=== PATIENT | male | born 1980 | race Caucasian/White ===

== ENCOUNTER 2018-10-05 17:00 | Emergency (ER) | payer OTHER ==
[~2018-10-05] VITALS: Ht 185.4 cm; Wt 95.3 kg
--- OUTSIDE RECORDS SUMMARY | 2018-10-05 17:02 | XMS REPORT | Clinical Summary ---
Author Author [facility] Address Unknown Phone Unavailable Care Team Providers Care Nitrogen Operator Name Role Phone PCP Unavailable Allergies Comments Active Allergy Reactions Severity Noted Date Other reaction(s): Hallucinations Cyclobenzaprine Nausea Only 03/10/2016 Other reaction(s): Hallucinations Ketorolac 03/10/2016 Morphine Hives, High 03/10/2016 Itching Medications End Date Status Medication Sig Dispensed Refills Start Date Active promethazine (PHENERGAN) Take 25 mg by 0 25 MG tablet mouth every 6 (six) hours as needed for Nausea. Active ALPRAZolam (XANAX) 0.25 Take 0.25 mg 0 MG tablet by mouth every night as needed for Anxiety. Active ondansetron (ZOFRAN) 4 MG Take 4 mg by 0 tablet mouth 2 (two) times daily as needed for Nausea. Active ondansetron (ZOFRAN ODT) Take 1 tablet 14 tablet 0 4 MG disintegrating (4 mg total) 6 tablet by mouth every 8 (eight) hours as needed for Nausea for up to 14 doses. Active amLODIPine (NORVASC) 10 Take 10 mg by 0 MG tablet mouth daily. Active clonazePAM (KLONOPIN) 1 Take 1 mg by 0 MG tablet mouth 2 (two) times daily as needed for Anxiety. Active Problems Not on file Encounters Care Team Description Date Type Specialty Milady, Will, DO Acute pain of left knee (Primary Dx); Drug-seeking behavior 06/07/2018 Emergency Emergency Medicine after 10/04/2017 Social History Date Tobacco Use Types Packs/Day Years Used Never Smoker Smokeless Tobacco: Never Used Alcohol Use Drinks/Week oz/Week Comments Yes Sex Assigned at Date Recorded Not on file Industry Job Start Date Occupation Not on file Not on file Not on file Travel End Travel History Travel Start No recent travel history available. Last Filed Vital Signs Time Taken Vital Sign Reading 06/07/2018 8:32 PM CDT Blood Pressure 132/71 06/07/2018 8:32 PM CDT Pulse 68 06/07/2018 8:32 PM CDT Temperature 37.3 C (99.1 F) 06/07/2018 8:32 PM CDT Respiratory Rate 18 06/07/2018 8:32 PM CDT Oxygen Saturation 99% - Inhaled Oxygen - Concentration 06/07/2018 8:32 PM CDT Weight 78 kg (172 lb) 06/07/2018 8:32 PM CDT Height 185.4 cm (6' 1") 06/07/2018 8:32 PM CDT Body Mass Index 22.69 Plan of Treatment Not on file Results Not on fileafter 10/04/2017 Insurance Payer Benefit Subscriber ID Type Phone Address Plan / Group CIGNA - MGD CARE CIGNA xxxxxxxxxxx HMO/POS HMO/POS/OP EN ACCESS
--- OUTSIDE RECORDS SUMMARY | 2018-10-05 17:02 | XMS REPORT | Clinical Summary ---
Author Author [facility] Address Unknown Phone Unavailable Care Team Providers Care Patcher Wood Welder Name Role Phone Josemanuel Cortes MD PCP Allergies No Known Allergies Medications Not on file Active Problems Not on file Encounters Care Team Description Date Type Specialty Epi Hayward DO Abdominal pain, unspecified abdominal location (Primary Dx); Other chronic pain 11/16/2017 Emergency Emergency Medicine after 10/04/2017 Social History Date Tobacco Use Types Packs/Day Years Used Never Smoker Smokeless Tobacco: Never Used Sex Assigned at Date Recorded Not on file Industry Job Start Date Occupation Not on file Not on file Not on file Travel End Travel History Travel Start No recent travel history available. Last Filed Vital Signs Time Taken Vital Sign Reading 11/16/2017 6:00 PM RIG WELDER Blood Pressure 103/63 11/16/2017 6:00 PM RIG WELDER Pulse 60 11/16/2017 4:50 PM RIG WELDER Temperature 37.1 C (98.8 F) 11/16/2017 6:00 PM RIG WELDER Respiratory Rate 20 11/16/2017 6:00 PM RIG WELDER Oxygen Saturation 98% - Inhaled Oxygen - Concentration - Weight - 11/16/2017 4:52 PM RIG WELDER Height 185.4 cm (6' 1") - Body Mass Index - Plan of Treatment Not on file Procedures Comments Procedure Name Priority Date/Time Associated Diagnosis ZZESTIMATED GFR STAT 11/16/2017 5:21 PM RIG WELDER HC COMPLETE BLD COUNT STAT 11/16/2017 W/AUTO DIFF 5:21 PM RIG WELDER LIPASE LEVEL STAT 11/16/2017 5:21 PM RIG WELDER COMPREHENSIVE METABOLIC STAT 11/16/2017 PANEL 5:21 PM RIG WELDER after 10/04/2017 Results * Estimated GFR (11/16/2017 5:21 PM RIG WELDER) GFR Non Af Amer 62 mL/min/1.73 m2 [facility] DEPARTMENT OF PATHOLOGY AND GENOMIC MEDICINE GFR Af Amer 75 mL/min/1.73 m2 [facility] DEPARTMENT OF Comment: PATHOLOGY AND Chronic kidney disease: <60 GENOMIC MEDICINE mL/min/1.73m2 Kidney failure: <15 mL/min/1.73m2 The estimated GFR is calculated from the IDMS-traceable Modification of Diet in Renal Disease Equation. The accuracy of the calculation is poor when the creatinine is normal. Calculated values >90 mL/min/1.73m2 are not reported. This equation has not been validated in children (<18 years), women, the elderly (>70 years), or ethnic groups other than Caucasians and Americans. Specimen Plasma specimen Performing Organization Address City/State/Zipcode Phone Number [facility] DEPARTMENT OF [address] [place] [address] PATHOLOGY AND GENOMIC MEDICINE * CBC with platelet and differential (11/16/2017 5:21 PM RIG WELDER) WBC 5.61 4.50 - 11.00 k/uL [facility] DEPARTMENT OF PATHOLOGY AND GENOMIC MEDICINE RBC 5.09 4.40 - 6.00 m/uL [facility] DEPARTMENT OF PATHOLOGY AND GENOMIC MEDICINE HGB 15.6 14.0 - 18.0 g/dL [facility] DEPARTMENT OF PATHOLOGY AND GENOMIC MEDICINE HCT 45.5 41.0 - 51.0 % [facility] DEPARTMENT OF PATHOLOGY AND GENOMIC MEDICINE MCV 89.4 82.0 - 100.0 fL [facility] DEPARTMENT OF PATHOLOGY AND GENOMIC MEDICINE MCH 30.6 27.0 - 34.0 pg [facility] DEPARTMENT OF PATHOLOGY AND GENOMIC MEDICINE MCHC 34.3 31.0 - 37.0 g/dL [facility] DEPARTMENT OF PATHOLOGY AND GENOMIC MEDICINE RDW - SD 41.8 37.0 - 55.0 fL [facility] DEPARTMENT OF PATHOLOGY AND GENOMIC MEDICINE MPV 10.9 8.8 - 13.2 fL [facility] DEPARTMENT OF PATHOLOGY AND GENOMIC MEDICINE Platelet count 303 150 - 400 k/uL [facility] DEPARTMENT OF PATHOLOGY AND GENOMIC MEDICINE Nucleated RBC 0.00 /100 WBC [facility] DEPARTMENT OF PATHOLOGY AND GENOMIC MEDICINE Neutrophils 67.5 39.0 - 69.0 % [facility] DEPARTMENT OF PATHOLOGY AND GENOMIC MEDICINE Lymphocytes 23.5 (L) 25.0 - 45.0 % [facility] DEPARTMENT OF PATHOLOGY AND GENOMIC MEDICINE Monocytes 5.2 0.0 - 10.0 % [facility] DEPARTMENT OF PATHOLOGY AND GENOMIC MEDICINE Eosinophils 1.6 0.0 - 5.0 % [facility] DEPARTMENT OF PATHOLOGY AND GENOMIC MEDICINE Basophils 2.0 (H) 0.0 - 1.0 % [facility] DEPARTMENT OF PATHOLOGY AND GENOMIC MEDICINE Immature granulocytes 0.2Comment: "Immature 0.0 - 1.0 % [facility] DEPARTMENT OF granulocytes" (promyelocytes, PATHOLOGY AND myelocytes, metamyelocytes) GENOMIC MEDICINE Specimen Blood Performing Organization Address City/[facility] [place] [address] PATHOLOGY AND GENOMIC MEDICINE * Lipase level (11/16/2017 5:21 PM RIG WELDER) Lipase 70 (H) 13 - 60 U/L [facility] DEPARTMENT OF PATHOLOGY AND GENOMIC MEDICINE Specimen Plasma specimen Performing Organization Address City/[facility] [place] [address] PATHOLOGY AND GENOMIC MEDICINE * Comprehensive metabolic panel (11/16/2017 5:21 PM RIG WELDER) Sodium 144 135 - 148 mEq/L [facility] DEPARTMENT OF PATHOLOGY AND GENOMIC MEDICINE Potassium 4.2 3.5 - 5.0 mEq/L [facility] DEPARTMENT OF PATHOLOGY AND GENOMIC MEDICINE Chloride 103 98 - 112 mEq/L [facility] DEPARTMENT OF PATHOLOGY AND GENOMIC MEDICINE CO2 28 24 - 31 mEq/L [facility] DEPARTMENT OF PATHOLOGY AND GENOMIC MEDICINE Anion gap 13 7 - 15 mEq/L [facility] DEPARTMENT OF Comment: PATHOLOGY AND Starting from January [facility] , anion gap calculation no longer incorporates potassium. Please note the change. BUN 12 6 - 20 mg/dL [facility] DEPARTMENT OF PATHOLOGY AND GENOMIC MEDICINE Creatinine 1.3 (H) 0.7 - 1.2 mg/dL [facility] DEPARTMENT OF PATHOLOGY AND GENOMIC MEDICINE Glucose 104 (H) 65 - 99 mg/dL [facility] DEPARTMENT OF PATHOLOGY AND GENOMIC MEDICINE Calcium 9.9 8.3 - 10.2 mg/dL [facility] DEPARTMENT OF PATHOLOGY AND GENOMIC MEDICINE Protein 8.3 6.3 - 8.3 g/dL [facility] DEPARTMENT OF Comment: PATHOLOGY AND GENOMIC MEDICINE 4.6-7.0 g/dL 1 week 4.4-7.6 g/dL 7 months-1year 5.1-7.3 g/dL 1-2 years5.6-7 .5 g/dL >3 years6.0-8 .0 g/dL 18-150 6.3-8.3 g/dL Albumin 4.3 3.5 - 5.0 g/dL [facility] DEPARTMENT OF PATHOLOGY AND GENOMIC MEDICINE A/G ratio 1.1 0.7 - 3.8 [facility] DEPARTMENT OF PATHOLOGY AND GENOMIC MEDICINE Alkaline phosphatase 60 40 - 129 U/L [facility] DEPARTMENT OF PATHOLOGY AND GENOMIC MEDICINE AST 19 10 - 50 U/L [facility] DEPARTMENT OF PATHOLOGY AND GENOMIC MEDICINE ALT 35 5 - 50 U/L [facility] DEPARTMENT OF PATHOLOGY AND GENOMIC MEDICINE Total bilirubin 0.3 0.0 - 1.2 mg/dL [facility] DEPARTMENT OF PATHOLOGY AND GENOMIC MEDICINE Specimen Plasma specimen Performing Organization Address City/State/Zipcode Phone Number [facility] DEPARTMENT [place] [address] [place] [address] PATHOLOGY AND GENOMIC MEDICINE after 10/04/2017 Insurance Payer Benefit Subscriber ID Type Phone Address Plan / Group CIGNA CIGNA OPEN xxxxxxxxxxx O ACCESS/NET WORK Advance Directives Patient has advance care planning documents on file. For more information, [place] contact: Asaf Walters [address] [place] [address]
--- OUTSIDE RECORDS SUMMARY | 2018-10-05 17:03 | XMS REPORT | Continuity of Care Document ---
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 - 10.4 07/02/2012 Normal [facility] IMMUNOLOGY H pylori IgG null 07/02/2012 NA 9Interpretive Data: Reference Ranges: Negative: <0.9 U/mL Indeterminate: 0.9 - 1.0 U/mL Repeat testing in 10-14 days may be helpful Positive: >=1.1 U/mL A positive result indicates exposure of the patient to H. Pylori, but does not indicate that the current symptoms are due to H. Pylori infection or colonization. Neither does it differentiate between active and past infection. [facility] IMMUNOLOGY KIMMIE Negative (07/02/2012 05:30:00) Negative 07/02/2012 Normal [facility] Hep A IgM Negative *NA* (07/02/2012 05:30:00) Negative 07/02/2012 NA [facility] Hep Bs Ag Negative *NA* (07/02/2012 05:30:00) Negative 07/02/2012 NA [facility] Hep B Core IgM Negative *NA* (07/02/2012 05:30:00) Negative 07/02/2012 NA [facility] Hep C Ab Negative *NA* (07/02/2012 05:30:00) Negative 07/02/2012 NA [facility] IMMUNOLOGY CRP, High Sensitivity 2.4 mg/L 07/02/2012 NA 7Interpretive Data: Low Risk: <1.0 mg/L Average Risk: 1.0 - 3.0 mg/L High Risk: >10.0 mg/L [facility] MICRO MISC - SEROLOGY H pylori IgM NEGATIVE NEGATIVE 07/02/2012 NA 1Result Comment: This test was developed and its performance characteristics have been determined by [facility]. Performance characteristics refer to the analytical performance of the test. Test Performed at: [facility] [address] [id number] Yadi Pruett MD, PhD [facility] CHEMISTRY Bili Indirect 0.2 mg/dL 0.0 - 1.0 07/01/2012 Normal [facility] CHEMISTRY Bili Total 0.3 mg/dL 0.2 - 1.3 07/01/2012 Normal [facility] CHEMISTRY Bili Direct 0.1 mg/dL 0.0 - 0.3 07/01/2012 Normal [facility] CHEMISTRY A/G Ratio 1.2 0.7 - 1.6 07/01/2012 Normal [facility] CHEMISTRY AST 27 unit/L 0 - 37 07/01/2012 Normal [facility] CHEMISTRY Alk Phos 50 unit/L 39 - 136 07/01/2012 Normal [facility] CHEMISTRY Albumin Lvl 3.2 g/dL 3.5 - 5.0 07/01/2012 LOW [facility] CHEMISTRY Globulin 2.7 g/dL 2.0 - 4.0 07/01/2012 Normal [facility] CHEMISTRY Total Protein 5.9 g/dL 6.4 - 8.4 07/01/2012 LOW [facility] CHEMISTRY ALT 40 unit/L 0 - 65 07/01/2012 Normal [facility] CHEMISTRY Glucose Lvl 122 mg/dL 70 - 99 07/01/2012 HI 3Interpretive Data: Adult reference range values reflect the clinical guidelines of the [place] [employer]. [facility] CHEMISTRY Alk Phos 50 unit/L 39 - 136 07/01/2012 Normal [facility] CHEMISTRY BUN 7 mg/dL 7 - 22 07/01/2012 Normal [facility] CHEMISTRY Potassium Lvl 4.0 meq/L 3.5 - 5.1 07/01/2012 Normal [facility] CHEMISTRY Sodium Lvl 144 meq/L 135 - 145 07/01/2012 Normal [facility] CHEMISTRY Creatinine Lvl 0.8 mg/dL 0.5 - 1.4 07/01/2012 Normal [facility] CHEMISTRY AST 27 unit/L 0 - 37 07/01/2012 Normal [facility] CHEMISTRY Total Protein 5.9 g/dL 6.4 - 8.4 07/01/2012 LOW [facility] CHEMISTRY Bili Total 0.3 mg/dL 0.2 - 1.3 07/01/2012 Normal [facility] CHEMISTRY Calcium Lvl 7.9 mg/dL 8.5 - 10.5 07/01/2012 LOW [facility] CHEMISTRY Chloride Lvl 110 meq/L 95 - 109 07/01/2012 HI [facility] CHEMISTRY CO2 25 meq/L 24 - 32 07/01/2012 Normal [facility] CHEMISTRY Albumin Lvl 3.2 g/dL 3.5 - 5.0 07/01/2012 LOW [facility] CHEMISTRY ALT 40 unit/L 0 - 65 07/01/2012 Normal [facility] CHEMISTRY A/G Ratio 1.2 0.7 - 1.6 07/01/2012 Normal [facility] CHEMISTRY Globulin 2.7 g/dL 2.0 - 4.0 07/01/2012 Normal [facility] CHEMISTRY B/C Ratio 9 6 - 25 07/01/2012 Normal [facility] CHEMISTRY AGAP 13.0 meq/L 10.0 - 20.0 07/01/2012 Normal [facility] CHEMISTRY Magnesium Lvl 1.9 mg/dL 1.8 - 2.4 07/01/2012 Normal [facility] CHEMISTRY Lipase Lvl 147 unit/L 73 - 393 07/01/2012 Normal [facility] HEMATOLOGY Platelet 217 K/CMM 133 - 450 07/01/2012 Normal [facility] HEMATOLOGY MCH 31.2 pg 27.0 - 31.0 07/01/2012 [facility] HEMATOLOGY RDW 16.3 % 11.5 - 14.5 07/01/2012 [facility] HEMATOLOGY MCHC 34.1 g/dL 32.0 - 36.0 07/01/2012 Normal [facility] HEMATOLOGY MPV 9.7 fL 7.4 - 10.4 07/01/2012 [facility] HEMATOLOGY Hct 36.3 % 42.0 - 54.0 07/01/2012 LOW [facility] HEMATOLOGY Hgb 12.4 g/dL 14.0 - 18.0 07/01/2012 [facility] HEMATOLOGY MCV 91.7 fL 80.0 - 94.0 07/01/2012 Normal [facility] HEMATOLOGY RBC 3.96 M/CMM 4.70 - 6.10 07/01/2012 [facility] HEMATOLOGY WBC 7.0 K/CMM 3.7 - 10.4 07/01/2012 [facility] HEMATOLOGY Eosinophils 8.1 % 0.0 - 4.0 07/01/2012 [facility] HEMATOLOGY Monocytes 5.4 % 2.0 - 12.0 07/01/2012 [facility] HEMATOLOGY Segs 48.9 % 45.0 - 75.0 07/01/2012 [facility] HEMATOLOGY Lymphocytes 36.5 % 20.0 - 40.0 07/01/2012 [facility] HEMATOLOGY Eosinophils # 0.6 K/CMM 0.0 - 0.5 07/01/2012 [facility] HEMATOLOGY Basophils # 0.1 K/CMM 0.0 - 0.2 07/01/2012 [facility] HEMATOLOGY Monocytes # 0.4 K/CMM 0.0 - 0.8 07/01/2012 [facility] HEMATOLOGY Lymphocytes # 2.6 K/CMM 1.0 - 5.5 07/01/2012 [facility] HEMATOLOGY Segs-Bands # 3.4 K/CMM 1.5 - 8.1 07/01/2012 [facility] HEMATOLOGY Basophils 1.1 % 0.0 - 1.0 07/01/2012 [facility] IMMUNOLOGY CRP, High Sensitivity 0.9 mg/L 07/01/2012 NA 8Interpretive Data: Low Risk: <1.0 mg/L Average Risk: 1.0 - 3.0 mg/L High Risk: >10.0 mg/L [facility] CHEMISTRY TSH 1.930 uIU/mL 0.360 - 3.740 06/30/2012 Normal [facility] CHEMISTRY AGAP 13.8 meq/L 10.0 - 20.0 06/30/2012 Normal [facility] CHEMISTRY Calcium Lvl 8.2 mg/dL 8.5 - 10.5 06/30/2012 LOW [facility] CHEMISTRY CO2 26 meq/L 24 - 32 06/30/2012 Normal [facility] CHEMISTRY Glucose Lvl 118 mg/dL 70 - 99 06/30/2012 HI 4Interpretive Data: Adult reference range values reflect the clinical guidelines of the [place] [employer]. [facility] CHEMISTRY BUN 17 mg/dL 7 - 22 06/30/2012 Normal [facility] CHEMISTRY Creatinine Lvl 1.0 mg/dL 0.5 - 1.4 06/30/2012 Normal [facility] CHEMISTRY Chloride Lvl 106 meq/L 95 - 109 06/30/2012 Normal [facility] CHEMISTRY Sodium Lvl 142 meq/L 135 - 145 06/30/2012 Normal [facility] CHEMISTRY Potassium Lvl 3.8 meq/L 3.5 - 5.1 06/30/2012 Normal [facility] HEMATOLOGY Basophils # 0.1 K/CMM 0.0 - 0.2 06/30/2012 Normal [facility] HEMATOLOGY Segs 57.3 % 45.0 - 75.0 06/30/2012 Normal [facility] HEMATOLOGY Lymphocytes 30.1 % 20.0 - 40.0 06/30/2012 Normal [facility] HEMATOLOGY Monocytes 5.8 % 2.0 - 12.0 06/30/2012 Normal [facility] HEMATOLOGY Eosinophils 5.8 % 0.0 - 4.0 06/30/2012 HI [facility] HEMATOLOGY Lymphocytes # 2.4 K/CMM 1.0 - 5.5 06/30/2012 Normal [facility] HEMATOLOGY Basophils 1.0 % 0.0 - 1.0 06/30/2012 Normal [facility] HEMATOLOGY Monocytes # 0.5 K/CMM 0.0 - 0.8 06/30/2012 Normal [facility] HEMATOLOGY Eosinophils # 0.5 K/CMM 0.0 - 0.5 06/30/2012 Normal [facility] HEMATOLOGY Segs-Bands # 4.7 K/CMM 1.5 - 8.1 06/30/2012 Normal [facility] HEMATOLOGY PT 13.6 s 12.0 - 14.7 06/30/2012 Normal [facility] HEMATOLOGY PTT 30.5 s 22.9 - 35.8 06/30/2012 Normal 6Interpretive Data: Heparin Therapeutic Range: 57 - 92 Seconds [facility] HEMATOLOGY INR 1.02 0.85 - 1.17 06/30/2012 Normal 5Interpretive Data: RECOMMENDED RANGES FOR PROTIME INR: 2.0-3.0 for most medical and surgical thromboembolic states. 2.5-3.5 for artificial heart valves and recurrent embolism. INR SHOULD BE USED ONLY FOR PATIENTS ON STABLE ANTICOAGULANT THERAPY. [facility] HEMATOLOGY MCHC 33.9 g/dL 32.0 - 36.0 06/30/2012 Normal [facility] HEMATOLOGY RDW 16.3 % 11.5 - 14.5 06/30/2012 [facility] HEMATOLOGY Platelet 259 K/CMM 133 - 450 06/30/2012 Normal [facility] HEMATOLOGY MPV 9.4 fL 7.4 - 10.4 06/30/2012 Normal [facility] HEMATOLOGY RBC 4.28 M/CMM 4.70 - 6.10 06/30/2012 LOW [facility] HEMATOLOGY Hgb 13.4 g/dL 14.0 - 18.0 06/30/2012 LOW [facility] HEMATOLOGY Hct 39.4 % 42.0 - 54.0 06/30/2012 LOW [facility] HEMATOLOGY WBC 8.1 K/CMM 3.7 - 10.4 06/30/2012 Normal [facility] HEMATOLOGY MCV 92.0 fL 80.0 - 94.0 06/30/2012 Normal [facility] HEMATOLOGY MCH 31.2 pg 27.0 - 31.0 06/30/2012 [facility] CHEMISTRY Bili Indirect 0.6 mg/dL 0.0 - 1.0 06/29/2012 Normal [facility] CHEMISTRY Globulin 3.6 g/dL 2.0 - 4.0 06/29/2012 Normal [facility] CHEMISTRY A/G Ratio 1.1 0.7 - 1.6 06/29/2012 Normal [facility] CHEMISTRY Bili Direct 0.1 mg/dL 0.0 - 0.3 06/29/2012 Normal [facility] CHEMISTRY Bili Total 0.7 mg/dL 0.2 - 1.3 06/29/2012 Normal [facility] CHEMISTRY Alk Phos 59 unit/L 39 - 136 06/29/2012 Normal [facility] CHEMISTRY ALT 47 unit/L 0 - 65 06/29/2012 Normal [facility] CHEMISTRY AST 10 unit/L 0 - 37 06/29/2012 Normal [facility] CHEMISTRY Albumin Lvl 4.1 g/dL 3.5 - 5.0 06/29/2012 Normal [facility] CHEMISTRY Total Protein 7.7 g/dL 6.4 - 8.4 06/29/2012 Normal [facility] CHEMISTRY Amylase Lvl 56 unit/L 25 - 115 06/29/2012 Normal [facility] CHEMISTRY Lipase Lvl 128 unit/L 73 - 393 06/29/2012 Normal [facility] STOOL TESTS Occult Bld Stl Positive *ABN* (06/29/2012 14:50:00) Negative 06/29/2012 ABN [facility] URINALYSIS UA Bili Negative *NA* (06/29/2012 14:20:00) Negative 06/29/2012 NA [facility] URINALYSIS UA Ketones Negative *NA* (06/29/2012 14:20:00) Negative 06/29/2012 NA [facility] URINALYSIS UA pH 6.5 5.0 - 8.0 06/29/2012 Normal [facility] URINALYSIS UA Urobilinogen 0.2 EU/dL 0.1 - 1.0 06/29/2012 Normal [facility] URINALYSIS UA Blood Negative (06/29/2012 14:20:00) Negative 06/29/2012 Normal [facility] URINALYSIS UA Mucus Rare /LPF (06/29/2012 14:20:00) None Seen 06/29/2012 Normal [facility] URINALYSIS UA RBC 0-2 /HPF (06/29/2012 14:20:00) 0 - 2 06/29/2012 Normal [facility] URINALYSIS UA Bacteria Occasional /HPF (06/29/2012 14:20:00) None Seen 06/29/2012 Normal [facility] URINALYSIS UA WBC 0-2 /HPF (06/29/2012 14:20:00) None Seen 06/29/2012 Normal [facility] URINALYSIS UA Leuk Est Negative (06/29/2012 14:20:00) Negative 06/29/2012 Normal [facility] URINALYSIS UA Sq Epi Occasional /LPF (06/29/2012 14:20:00) Few 06/29/2012 Normal [facility] URINALYSIS Micro? Performed (06/29/2012 14:20:00) 06/29/2012 Normal [facility] URINALYSIS UA Nitrite Negative (06/29/2012 14:20:00) Negative 06/29/2012 Normal [facility] URINALYSIS UA Color Yellow *NA* (06/29/2012 14:20:00) Yellow 06/29/2012 NA [facility] URINALYSIS UA Protein Negative (06/29/2012 14:20:00) Negative 06/29/2012 Normal [facility] URINALYSIS UA Glucose Negative (06/29/2012 14:20:00) Negative 06/29/2012 Normal [facility] URINALYSIS UA Spec Grav <=1.005
*NA*
(06/29/2012 14:20:00) <sup> </sup> <=1.030 06/29/2012 NA [facility] URINALYSIS UA Turbidity Clear (06/29/2012 14:20:00) Clear 06/29/2012 Normal [facility] Vital Signs Vital Sign Value Date Comments Source Temperature Oral (F) 98.0 F 10/14/2015 [facility] Respitory Rate 18 10/14/2015 [facility] Heart Rate 71 10/14/2015 [facility] Systolic (mm Hg) 108 10/14/2015 [facility] Diastolic (mm Hg) 72 10/14/2015 [facility] Temperature Oral (F) 98.5 F 10/13/2015 [facility] Heart Rate 64 10/13/2015 [facility] Respitory Rate 18 10/13/2015 [facility] Systolic (mm Hg) 112 10/13/2015 [facility] Diastolic (mm Hg) 71 10/13/2015 [facility] Systolic (mm Hg) 116 04/12/2014 [facility] Diastolic (mm Hg) 72 04/12/2014 [facility] Heart Rate 70 04/12/2014 [facility] Respitory Rate 16 04/12/2014 [facility] Temperature Oral (F) 98.5 F 04/12/2014 [facility] Systolic (mm Hg) 120 04/12/2014 [facility] Diastolic (mm Hg) 78 04/12/2014 [facility] Heart Rate 77 04/12/2014 [facility] Respitory Rate 16 04/12/2014 [facility] Weight 72.727 04/12/2014 [facility] Heart Rate 79 04/12/2014 [facility] Respitory Rate 16 04/12/2014 [facility] Systolic (mm Hg) 118 04/12/2014 [facility] Diastolic (mm Hg) 71 04/12/2014 [facility] Temperature Oral (F) 97.4 F 04/12/2014 [facility] Weight 86.364 08/09/2012 [facility] Height 185.42 cm 08/09/2012 [facility] Respitory Rate 16 07/03/2012 [facility] Temperature Oral (F) 97.6 F 07/03/2012 [facility] Systolic (mm Hg) 125 07/03/2012 [facility] Diastolic (mm Hg) 63 07/03/2012 [facility] Heart Rate 53 07/03/2012 [facility] Respitory Rate 18 07/03/2012 [facility] Heart Rate 62 07/03/2012 [facility] Temperature Oral (F) 98.0 F 07/03/2012 [facility] Diastolic (mm Hg) 66 07/03/2012 [facility] Systolic (mm Hg) 119 07/03/2012 [facility] Diastolic (mm Hg) 63 07/03/2012 [facility] Heart Rate 57 07/03/2012 [facility] Systolic (mm Hg) 117 07/03/2012 [facility] Respitory Rate 18 07/03/2012 [facility] Temperature Oral (F) 98.3 F 07/03/2012 [facility] Weight 82.200 06/30/2012 [facility] Height 182.88 cm 06/30/2012 [facility] Weight 81.818 06/29/2012 [facility] Height 182.88 cm 06/29/2012 [facility] Encounters Location Location Details Encounter Type Encounter Number Reason For Visit Attending Provider ADM Date DC Date Status Source [facility] Inpatient [id number] HERIBERTO GARCIA 07/01/2012 07/03/2012 Active [facility] [place] [id number] SAMRA BAVISHI 08/09/2012 08/09/2012 Active [facility] Emergency [id number] VIJI CASTELLANOS 06/10/2013 06/10/2013 Active [facility] [id number] Evelio Navarro 04/12/2014 04/12/2014 [facility] [id number] Haresh [place] 10/13/2015 10/14/2015 [facility] Outpatient [id number] D SAMRA BAVISHI Cancel [facility] Procedures Procedure Code Date Perfomer Comments Source Spinal fusion [id number] [facility] Spinal fusion [id number] [facility]
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
--- OUTSIDE RECORDS SUMMARY | 2018-10-05 17:04 | XMS REPORT ---
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 Allergies, Adverse Reactions, Alerts Allergy Name Allergy Type Status Severity Reaction(s) Onset Date Inactive Date Treating Clinician Comments cyclobenzaprine DA Active NV 2018-06-10 00:00:00 ketorolac DA Active NV 2018-06-10 00:00:00 Medications This patient has no known medications. Results Test Description Test Time Test Comments Text Results Atomic Results Result Comments MRI LUMBAR WO CLINICAL INDICATION: M54.5 Low back pain. back pain and right leg pain. no sxMODALITY: 1.5 Victoria Siemens TECHNIQUE: Multiplanar multi sequence MRI examination of the lumbar spine was performed.IMPRESSION:1. Normal vertebral body heights, disc heights and alignment with mild disc desiccation at all levels.2. No central canal or foraminal narrowing.3. At L4- L5, 1 mm broad-based disc protrusion minimally effacing the CSF column. The facets are normal. The central canal and foramina are normal.4. At L3-L4, mild bilateral facet arthropathy.FINDINGS:COMPARISON: noneGeneral observations: Yuri tebral body heights, disc heights and alignment are normal. There is mild disc desiccation in all lumbar discs. FINDINGS AT SPECIFIC LEVELS:L5-S1: There is no disc protrusion or facet arthropathy. The central canal and foramina are normal.L4-L5: There is a 1 mm broad-based disc protrusion minimally effacing the CSF column. The facets are normal. The central canal and foramina are normal.L3- L4: There is no disc protrusion. There is mild bilateral facet arthropathy. The central canal and foramina are patent.L2-L3: There is no disc protrusion or facet arthropathy. The central canal and foramina are patent.L1-L2: There is no disc protrusion or facet arthropathy. The central canal and foramina are patent.
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
--- OUTSIDE RECORDS SUMMARY | 2018-10-05 17:04 | XMS REPORT | CCD ---
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
--- OUTSIDE RECORDS SUMMARY | 2018-10-05 17:04 | XMS REPORT | CCD ---
Author Author Auto Generated Organization [facility] Address Unknown Phone Unavailable Care Team Providers Care Inweaver Name Role Phone Amy Donahue CP Allergies, Adverse Reactions, Alerts Substance Reaction Status Flexeril Active Problem List Condition Effective Dates Status [D]Nausea and vomiting 06/30/2012 Active Abdominal pain Active Abdominal pain Active
--- OUTSIDE RECORDS SUMMARY | 2018-10-05 17:04 | XMS REPORT | CCD ---
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 Name Role Phone Barak Kendrick CP Allergies, Adverse Reactions, Alerts Substance Reaction Status Flexeril Active Problem List Condition Effective Dates Status [D]Nausea and vomiting 06/30/2012 Active Abdominal pain Active Abdominal pain Active Medications Medication Instructions Start Date End Date Status Zofran 4 mg, Route: IVP, Drug form: INJ, 06/29/2012 06/29/2012 Completed ONCE, Dosing Weight 81.818, kg, Start date: 06/29/12 20:37:00, Stop date: 06/29/12 20:37:00 NS 1,000 mL 1,000 mL, Rate: 100 ml/hr, Infuse 06/29/2012 06/30/2012 Discontinued over: 10 hr, Route: IV, Dosing Weight 81.818 kg, Total Volume: 1,000, Start date: 06/29/12 20:27:00, Duration: 30 day, Stop date: 07/29/12 20:26:00 [place] 5/325 oral 2 tab, Route: PO, Drug Form: TAB, 06/29/2012 07/01/2012 Discontinued tablet kg, Q6H, PRN Pain, Start date: 06/29/12 21:23:00, Duration: 30 day, Stop date: 07/29/12 21:22:00 lactulose 20 gm, 30 mL, Route: PO, Drug form: 06/29/2012 07/03/2012 Discontinued SYRP, BID, PRN Constipation, Start date: 06/29/12 23:23:00, Duration: 30 day, Stop date: 07/29/12 23:22:00 acetaminophen-hydroc 1 tab, Route: PO, Drug Form: TAB, 06/29/2012 07/01/2012 Discontinued odone 325 mg-5 mg Q6H, PRN Pain, Start date: 06/29/12 oral tablet 23:22:00, Duration: 30 day, Stop date: 07/29/12 23:21:00 Protonix 40 mg, Route: IVP, Drug form: INJ, 07/01/2012 07/01/2012 Completed ONCE, Start date: 07/01/12 6:42:00, Stop date: 07/01/12 6:42:00 Phenergan 25 mg, 1 tab, Route: PO, Drug form: 06/29/2012 07/01/2012 Discontinued TAB, Q6H, PRN Nausea & Vomiting, Start date: 06/29/12 23:22:00, Duration: 30 day, Stop date: 07/29/12 23:21:00 morphine Sulfate 4 mg, 0.8 mL, Route: IV, Drug form: 06/29/2012 07/01/2012 Discontinued INJ, Q4H, PRN Pain, Start date: 06/29/12 23:21:00, Duration: 30 day, Stop date: 07/29/12 23:20:00 Phenergan 25 mg, Route: IM, ONCE, Dosing 06/29/2012 06/29/2012 Completed Weight 81.818, kg, Priority: STAT, Start date: 06/29/12 16:23:00, Stop date: 06/29/12 16:23:00 Ativan 1 mg, 0.5 mL, Route: IV, Drug form: 06/30/2012 07/03/2012 Discontinued INJ, Q4H, PRN Nausea, Start date: 06/30/12 20:50:00, Duration: 30 day, Stop date: 07/30/12 20:49:00 Reglan 10 mg, 2 mL, Route: IV, Drug form: 06/30/2012 07/01/2012 Completed INJ, ONCE, Start date: 06/30/12 23:14:00, Stop date: 06/30/12 23:14:00 Dilaudid 2 mg, Route: IV, ONCE, Dosing 06/29/2012 06/29/2012 Completed Weight 81.818, kg, Start date: 06/29/12 16:22:00, Stop date: 06/29/12 16:22:00 hydromorphone 6 mg 30 mL, Rate: asdir, Route: IV, 06/30/2012 07/03/2012 Discontinued Dosing Weight 82.2 kg, Total Volume: 30, Start date: 06/30/12 20:49:00, Duration: 30 day, Stop date: 07/30/12 20:48:00 Zofran 4 mg, 2 mL, Route: IVP, Drug form: 06/30/2012 07/03/2012 Discontinued INJ, Q6H, PRN Pain, Start date: 06/30/12 10:18:00, Duration: 30 day, Stop date: 07/30/12 10:17:00 Zofran 4 mg, 2 mL, Route: IVP, Drug form: 06/30/2012 07/01/2012 Discontinued INJ, ABXQ6H, Start date: 06/30/12 21:00:00, Duration: 30 day, Stop date: 07/30/12 15:00:00 Reglan 10 mg, 2 mL, Route: IV, Drug form: 07/01/2012 07/01/2012 Discontinued INJ, ABXQ6H, Start date: 07/01/12 0:00:00, Duration: 30 day, Stop date: 07/30/12 18:00:00 pantoprazole 80 mg + 100 mL, Rate: 10 ml/hr, Infuse 06/30/2012 07/02/2012 Completed Sodium Chloride 0.9% over: 10 hr, Route: IV, Dosing IV 100 mL Weight 82.2 kg, Total Volume: 100, Start date: 06/30/12 20:45:00, Duration: 48 hr, Stop date: 07/02/12 20:44:00 GoLYTELY 4,000 mL, Route: PO, Drug Form: 07/02/2012 07/02/2012 Completed PDR/REC, ONCE, Start date: 07/02/12 9:00:00, Stop date: 07/02/12 9:00:00 pantoprazole 40 mg IVP, 120 ml/hr, Start date: 06/30/2012 06/30/2012 Completed 06/30/12 20:45:00, Duration: 1, 10 ml Carafate 1 gm, 10 mL, Route: PO, Drug form: 06/30/2012 07/03/2012 Discontinued SUSP, QID, Start date: 06/30/12 21:00:00, Duration: 30 day, Stop date: 07/30/12 17:00:00 morphine Sulfate 4 mg, Route: IVP, ONCE, Dosing 06/29/2012 06/29/2012 Completed Weight 81.818, kg, Start date: 06/29/12 20:27:00, Stop date: 06/29/12 20:27:00 Zofran 4 mg, 2 mL, Route: IVP, Drug form: 07/01/2012 07/01/2012 Discontinued INJ, Q12H, Start date: 07/01/12 9:00:00, Duration: 30 day, Stop date: 07/30/12 21:00:00 Reglan 10 mg, 2 mL, Route: IV, Drug form: 07/01/2012 07/01/2012 Discontinued INJ, [id number], Start date: 07/01/12 3:00:00, Duration: 30 day, Stop date: 07/30/12 15:00:00 hydromorphone 2 mg, 1 mL, Route: IVP, Drug form: 06/29/2012 06/29/2012 Completed INJ, ONCE, kg, Priority: STAT, Start date: 06/29/12 14:48:00, Stop date: 06/29/12 14:48:00 ondansetron 8 mg, 4 mL, Route: IVP, Drug form: 06/29/2012 06/29/2012 Completed INJ, ONCE, kg, Priority: STAT, Start date: 06/29/12 14:48:00, Stop date: 06/29/12 14:48:00 pantoprazole 40 mg, Route: IVP, Drug form: INJ, 06/29/2012 06/29/2012 Completed ONCE, kg, For IV push reconstitute with 10 ml 0.9% sodium chloride and push over at least 3 minutes, Priority: STAT, Start date: 06/29/12 14:48:00, Stop date: 06/29/12 14:48:00 Saline Flush 0.9% 5 ml, Route: IVP, Drug Form: INJ, 06/29/2012 06/30/2012 Completed kg, PRN, PRN Line Flush, Start date: 06/29/12 14:48:00, Duration: 24 hr, Stop date: 06/30/12 14:47:00 Dilaudid 2 mg, 1 mL, Route: IV, Drug form: 06/29/2012 07/01/2012 Discontinued INJ, Q4H, PRN Pain, Start date: 06/29/12 23:28:00, Duration: 30 day, Stop date: 07/29/12 23:27:00 Xanax 1 mg, 1 tab, Route: PO, Drug form: 06/29/2012 07/01/2012 Discontinued TAB, Bedtime, Start date: 06/29/12 23:27:00, Duration: 30 day, Stop date: 07/29/12 21:00:00 Xanax 1 mg, 1 tab, Route: PO, Drug form: 06/29/2012 07/01/2012 Discontinued TAB, TID, Start date: 06/29/12 23:26:00, Stop date: 07/29/12 17:00:00 OxyContin 40 mg, 2 tab, Route: PO, Drug form: 06/30/2012 07/01/2012 Discontinued ERTAB, BID, Start date: 06/30/12 9:00:00, Duration: 30 day, Stop date: 07/29/12 17:00:00 Sodium Chloride 0.9% 250 mL, Route: IVPB, Start date: 07/02/2012 07/03/2012 Discontinued IV 07/02/12 16:02:00, Duration: 30 day, Stop date: 08/01/12 16:01:00, PRN Line Flush BD Normal Saline 10 mL, Route: IVP, Drug Form: INJ, 07/02/2012 07/03/2012 Discontinued Flush PRN, PRN Line Flush, Start date: 07/02/12 16:02:00, Duration: 30 day, Stop date: 08/01/12 16:01:00 Ambien 10 mg, 1 tab, Route: PO, Drug form: 06/29/2012 07/01/2012 Discontinued TAB, Bedtime, PRN Sleep, Start date: 06/29/12 23:25:00, Duration: 30 day, Stop date: 07/29/12 23:24:00 Zofran 4 mg, 2 mL, Route: IV, Drug form: 07/01/2012 07/03/2012 Discontinued INJ, Q6H, Start date: 07/01/12 21:00:00, Duration: 30 day, Stop date: 07/31/12 15:00:00 Reglan 10 mg, 2 mL, Route: IV, Drug form: 07/02/2012 07/03/2012 Discontinued INJ, Q6H, Start date: 07/02/12 0:00:00, Duration: 30 day, Stop date: 07/31/12 18:00:00 Zofran 4 mg, 2 mL, Route: IVP, Drug form: 06/29/2012 07/01/2012 Discontinued INJ, Q8H, PRN Nausea & Vomiting, Start date: 06/29/12 23:25:00, Duration: 30 day, Stop date: 07/29/12 23:24:00 Asacol 2,400 mg, 6 tab, Route: PO, Drug 06/30/2012 07/03/2012 Discontinued form: ECTAB, BID, Start date: 06/30/12 17:00:00, Duration: 30 day, Stop date: 07/30/12 9:00:00 Reglan 10 mg, 2 mL, Route: IVP, Drug form: 06/29/2012 06/29/2012 Completed INJ, ONCE, kg, Priority: STAT, Start date: 06/29/12 18:40:00, Stop date: 06/29/12 18:40:00 Phenergan Substitution Allowed 06/29/2012 Ordered Tylenol 650 mg, 2 tab, Route: PO, Drug 06/29/2012 07/03/2012 Discontinued form: TAB, Q4H, PRN Pain/Fever, Start date: 06/29/12 23:24:00, Duration: 30 day, Stop date: 07/29/12 23:23:00 Zofran Substitution Allowed 06/29/2012 Ordered Xanax Substitution Allowed 06/29/2012 Ordered Dilaudid Substitution Allowed 06/29/2012 Ordered OxyContin Substitution Allowed 06/29/2012 Ordered Sodium Chloride 0.9% 1,000 mL, Rate: 25 ml/hr, Infuse 07/01/2012 07/03/2012 Discontinued IV 1,000 mL over: 40 hr, Route: IV, Dosing Weight 82.2 kg, Total Volume: 1,000, Start date: 07/01/12 18:31:00, Stop date: 07/31/12 18:30:00 Bentyl Substitution Allowed 06/29/2012 Ordered NS 1,000 mL 1,000 mL, Rate: 150 ml/hr, Infuse 06/30/2012 07/01/2012 Discontinued over: 6.7 hr, Route: IV, Dosing Weight 82.2 kg, Total Volume: 1,000, Start date: 06/30/12 20:53:00, Duration: 30 day, Stop date: 07/30/12 20:52:00 Vital Signs Most recent to oldest [Reference Range]: 1 2 3 Height 182.88 cm (06/30/2012 01:12:00) 182.88 cm (06/29/2012 14:37:00) Temperature Oral [96.4-99.1 DegF] 97.6 DegF (07/03/2012 07:45:00) 98.0 DegF (07/03/2012 04:30:00) 98.3 DegF (07/03/2012 00:00:00) Systolic Blood Pressure [90-140 mmHg] 125 mmHg (07/03/2012 07:45:00) 119 mmHg (07/03/2012 04:30:00) 117 mmHg (07/03/2012 00:00:00) Diastolic Blood Pressure [60-90 mmHg] 63 mmHg (07/03/2012 07:45:00) 66 mmHg (07/03/2012 04:30:00) 63 mmHg (07/03/2012 00:00:00) Respiratory Rate [14-20 BRMIN] 16 BRMIN (07/03/2012 07:45:00) 18 BRMIN (07/03/2012 04:30:00) 18 BRMIN (07/03/2012 00:00:00) Peripheral Pulse Rate [60-100 bpm] 53 bpm *LOW* (07/03/2012 07:45:00) 62 bpm (07/03/2012 04:30:00) 57 bpm *LOW* (07/03/2012 00:00:00) Weight 82.200 kg (06/30/2012 01:12:00) 81.818 kg (06/29/2012 14:37:00) Results MICRO MISC - SEROLOGY Most recent to oldest [Reference Range]: 1 2 3 H pylori IgM [NEGATIVE] NEGATIVE 1 *NA* (07/02/2012 05:30:00) 1Result Comment: This test was developed and its performance characteristics have been determined by [facility]. Performance characteristics refer to the analytical performance of the test. Test Performed at: [facility] [address] [place] [address] Yadi Pruett MD, PhD URINALYSIS Most recent to oldest [Reference Range]: 1 2 3 UA Turbidity [Clear] Clear (06/29/2012 14:20:00) UA Color [Yellow] Yellow *NA* (06/29/2012 14:20:00) UA pH [5.0-8.0] 6.5 (06/29/2012 14:20:00) UA Spec Grav [<=1.030] <=1.005 *NA* (06/29/2012 14:20:00) UA Glucose [Negative] Negative (06/29/2012 14:20:00) UA Blood [Negative] Negative (06/29/2012 14:20:00) UA Ketones [Negative] Negative *NA* (06/29/2012 14:20:00) UA Protein [Negative] Negative (06/29/2012 14:20:00) UA Urobilinogen [0.1-1.0 EU/dL] 0.2 EU/dL (06/29/2012 14:20:00) UA Bili [Negative] Negative *NA* (06/29/2012 14:20:00) UA Leuk Est [Negative] Negative (06/29/2012 14:20:00) UA Nitrite [Negative] Negative (06/29/2012 14:20:00) UA WBC [None Seen /HPF] 0-2 /HPF (06/29/2012 14:20:00) UA RBC [0-2 /HPF] 0-2 /HPF (06/29/2012 14:20:00) UA Bacteria [None Seen /HPF] Occasional /HPF (06/29/2012 14:20:00) UA Sq Epi [Few /LPF] Occasional /LPF (06/29/2012 14:20:00) UA Mucus [None Seen /LPF] Rare /LPF (06/29/2012 14:20:00) Micro? Performed (06/29/2012 14:20:00) STOOL TESTS Most recent to oldest [Reference Range]: 1 2 3 Occult Bld Stl [Negative] Positive *ABN* (06/29/2012 14:50:00) CHEMISTRY Most recent to oldest [Reference Range]: 1 2 3 Sodium Lvl [135-145 mEq/L] 141 mEq/L (07/02/2012 05:30:00) 144 mEq/L (07/01/2012 05:30:00) 142 mEq/L (06/30/2012 04:34:00) Potassium Lvl [3.5-5.1 mEq/L] 3.8 mEq/L (07/02/2012 05:30:00) 4.0 mEq/L (07/01/2012 05:30:00) 3.8 mEq/L (06/30/2012 04:34:00) Chloride Lvl [95-109 mEq/L] 104 mEq/L (07/02/2012 05:30:00) 110 mEq/L *HI* (07/01/2012 05:30:00) 106 mEq/L (06/30/2012 04:34:00) CO2 [24-32 mEq/L] 29 mEq/L (07/02/2012 05:30:00) 25 mEq/L (07/01/2012 05:30:00) 26 mEq/L (06/30/2012 04:34:00) AGAP [10.0-20.0 mEq/L] 11.8 mEq/L (07/02/2012 05:30:00) 13.0 mEq/L (07/01/2012 05:30:00) 13.8 mEq/L (06/30/2012 04:34:00) Creatinine Lvl [0.5-1.4 mg/dL] 0.9 mg/dL (07/02/2012 05:30:00) 0.8 mg/dL (07/01/2012 05:30:00) 1.0 mg/dL (06/30/2012 04:34:00) BUN [7-22 mg/dL] 4 mg/dL *LOW* (07/02/2012 05:30:00) 7 mg/dL (07/01/2012 05:30:00) 17 mg/dL (06/30/2012 04:34:00) B/C Ratio [6-25] 9 (07/01/2012 05:30:00) Glucose Lvl [70-99 mg/dL] 84 mg/dL 2 (07/02/2012 05:30:00) 122 mg/dL 3 *HI* (07/01/2012 05:30:00) 118 mg/dL 4 *HI* (06/30/2012 04:34:00) Total Protein [6.4-8.4 g/dL] 5.9 g/dL *LOW* (07/01/2012 05:30:00) 5.9 g/dL *LOW* (07/01/2012 05:30:00) 7.7 g/dL (06/29/2012 14:55:00) Albumin Lvl [3.5-5.0 g/dL] 3.2 g/dL *LOW* (07/01/2012 05:30:00) 3.2 g/dL *LOW* (07/01/2012 05:30:00) 4.1 g/dL (06/29/2012 14:55:00) Globulin [2.0-4.0 g/dL] 2.7 g/dL (07/01/2012 05:30:00) 2.7 g/dL (07/01/2012 05:30:00) 3.6 g/dL (06/29/2012 14:55:00) A/G Ratio [0.7-1.6] 1.2 (07/01/2012 05:30:00) 1.2 (07/01/2012 05:30:00) 1.1 (06/29/2012 14:55:00) Calcium Lvl [8.5-10.5 mg/dL] 8.3 mg/dL *LOW* (07/02/2012 05:30:00) 7.9 mg/dL *LOW* (07/01/2012 05:30:00) 8.2 mg/dL *LOW* (06/30/2012 04:34:00) Magnesium Lvl [1.8-2.4 mg/dL] 1.9 mg/dL (07/01/2012 05:30:00) ALT [0-65 unit/L] 40 unit/L (07/01/2012 05:30:00) 40 unit/L (07/01/2012 05:30:00) 47 unit/L (06/29/2012 14:55:00) AST [0-37 unit/L] 27 unit/L (07/01/2012 05:30:00) 27 unit/L (07/01/2012 05:30:00) 10 unit/L (06/29/2012 14:55:00) Alk Phos [39-136 unit/L] 50 unit/L (07/01/2012 05:30:00) 50 unit/L (07/01/2012 05:30:00) 59 unit/L (06/29/2012 14:55:00) Bili Total [0.2-1.3 mg/dL] 0.3 mg/dL (07/01/2012 05:30:00) 0.3 mg/dL (07/01/2012 05:30:00) 0.7 mg/dL (06/29/2012 14:55:00) Bili Direct [0.0-0.3 mg/dL] 0.1 mg/dL (07/01/2012 05:30:00) 0.1 mg/dL (06/29/2012 14:55:00) Bili Indirect [0.0-1.0 mg/dL] 0.2 mg/dL (07/01/2012 05:30:00) 0.6 mg/dL (06/29/2012 14:55:00) Amylase Lvl [25-115 unit/L] 56 unit/L (06/29/2012 14:55:00) Lipase Lvl [73-393 unit/L] 147 unit/L (07/01/2012 05:30:00) 128 unit/L (06/29/2012 14:55:00) TSH [0.360-3.740 uIU/mL] 1.930 uIU/mL (06/30/2012 04:34:00) 2Interpretive Data: Adult reference range values reflect the clinical guidelines of the [place] [employer]. 3Interpretive Data: Adult reference range values reflect the clinical guidelines of the [place] [employer]. 4Interpretive Data: Adult reference range values reflect the clinical guidelines of the [place] [employer]. HEMATOLOGY Most recent to oldest [Reference Range]: 1 2 3 WBC [3.7-10.4 K/CMM] 8.0 K/CMM (07/02/2012 05:30:00) 7.0 K/CMM (07/01/2012 05:30:00) 8.1 K/CMM (06/30/2012 04:34:00) RBC [4.70-6.10 M/CMM] 4.22 M/CMM *LOW* (07/02/2012 05:30:00) 3.96 M/CMM *LOW* (07/01/2012 05:30:00) 4.28 M/CMM *LOW* (06/30/2012 04:34:00) Hgb [14.0-18.0 g/dL] 13.1 g/dL *LOW* (07/02/2012 05:30:00) 12.4 g/dL *LOW* (07/01/2012 05:30:00) 13.4 g/dL *LOW* (06/30/2012 04:34:00) Hct [42.0-54.0 %] 38.4 % *LOW* (07/02/2012 05:30:00) 36.3 % *LOW* (07/01/2012 05:30:00) 39.4 % *LOW* (06/30/2012 04:34:00) MCV [80.0-94.0 fL] 91.0 fL (07/02/2012 05:30:00) 91.7 fL (07/01/2012 05:30:00) 92.0 fL (06/30/2012 04:34:00) MCH [27.0-31.0 pg] 31.0 pg (07/02/2012 05:30:00) 31.2 pg *HI* (07/01/2012 05:30:00) 31.2 pg *HI* (06/30/2012 04:34:00) MCHC [32.0-36.0 g/dL] 34.1 g/dL (07/02/2012 05:30:00) 34.1 g/dL (07/01/2012 05:30:00) 33.9 g/dL (06/30/2012 04:34:00) RDW [11.5-14.5 %] 16.1 % *HI* (07/02/2012 05:30:00) 16.3 % *HI* (07/01/2012 05:30:00) 16.3 % *HI* (06/30/2012 04:34:00) Platelet [133-450 K/CMM] 225 K/CMM (07/02/2012 05:30:00) 217 K/CMM (07/01/2012 05:30:00) 259 K/CMM (06/30/2012 04:34:00) MPV [7.4-10.4 fL] 9.5 fL (07/02/2012 05:30:00) 9.7 fL (07/01/2012 05:30:00) 9.4 fL (06/30/2012 04:34:00) Segs [45.0-75.0 %] 63.4 % (07/02/2012 05:30:00) 48.9 % (07/01/2012 05:30:00) 57.3 % (06/30/2012 04:34:00) Lymphocytes [20.0-40.0 %] 23.1 % (07/02/2012 05:30:00) 36.5 % (07/01/2012 05:30:00) 30.1 % (06/30/2012 04:34:00) Monocytes [2.0-12.0 %] 4.8 % (07/02/2012 05:30:00) 5.4 % (07/01/2012 05:30:00) 5.8 % (06/30/2012 04:34:00) Eosinophils [0.0-4.0 %] 7.8 % *HI* (07/02/2012 05:30:00) 8.1 % *HI* (07/01/2012 05:30:00) 5.8 % *HI* (06/30/2012 04:34:00) Basophils [0.0-1.0 %] 0.9 % (07/02/2012 05:30:00) 1.1 % *HI* (07/01/2012 05:30:00) 1.0 % (06/30/2012 04:34:00) Segs-Bands # [1.5-8.1 K/CMM] 5.1 K/CMM (07/02/2012 05:30:00) 3.4 K/CMM (07/01/2012 05:30:00) 4.7 K/CMM (06/30/2012 04:34:00) Lymphocytes # [1.0-5.5 K/CMM] 1.8 K/CMM (07/02/2012 05:30:00) 2.6 K/CMM (07/01/2012 05:30:00) 2.4 K/CMM (06/30/2012 04:34:00) Monocytes # [0.0-0.8 K/CMM] 0.4 K/CMM (07/02/2012 05:30:00) 0.4 K/CMM (07/01/2012 05:30:00) 0.5 K/CMM (06/30/2012 04:34:00) Eosinophils # [0.0-0.5 K/CMM] 0.6 K/CMM *HI* (07/02/2012 05:30:00) 0.6 K/CMM *HI* (07/01/2012 05:30:00) 0.5 K/CMM (06/30/2012 04:34:00) Basophils # [0.0-0.2 K/CMM] 0.1 K/CMM (07/02/2012 05:30:00) 0.1 K/CMM (07/01/2012 05:30:00) 0.1 K/CMM (06/30/2012 04:34:00) Sed Rate [0-15 mm/hr] 5 mm/hr (07/02/2012 05:30:00) PT [12.0-14.7 seconds] 13.6 seconds (06/30/2012 04:34:00) INR [0.85-1.17] 1.02 5 (06/30/2012 04:34:00) PTT [22.9-35.8 seconds] 30.5 seconds 6 (06/30/2012 04:34:00) 5Interpretive Data: RECOMMENDED RANGES FOR PROTIME INR: 2.0-3.0 for most medical and surgical thromboembolic states. 2.5-3.5 for artificial heart valves and recurrent embolism. INR SHOULD BE USED ONLY FOR PATIENTS ON STABLE ANTICOAGULANT THERAPY. 6Interpretive Data: Heparin Therapeutic Range: 57 - 92 Seconds IMMUNOLOGY Most recent to oldest [Reference Range]: 1 2 3 KIMMIE [Negative] Negative (07/02/2012 05:30:00) CRP, High Sensitivity 2.4 mg/L 7 *NA* (07/02/2012 05:30:00) 0.9 mg/L 8 *NA* (07/01/2012 05:30:00) H pylori IgG <0.4 unit/mL 9 *NA* (07/02/2012 05:30:00) Hep Bs Ag [Negative] Negative *NA* (07/02/2012 05:30:00) Hep B Core IgM [Negative] Negative *NA* (07/02/2012 05:30:00) Hep A IgM [Negative] Negative *NA* (07/02/2012 05:30:00) Hep C Ab [Negative] Negative *NA* (07/02/2012 05:30:00) 7Interpretive Data: Low Risk: <1.0 mg/L Average Risk: 1.0 - 3.0 mg/L High Risk: >10.0 mg/L 8Interpretive Data: Low Risk: <1.0 mg/L Average Risk: 1.0 - 3.0 mg/L High Risk: >10.0 mg/L 9Interpretive Data: Reference Ranges: Negative: <0.9 U/mL Indeterminate: 0.9 - 1.0 U/mL Repeat testing in 10-14 days may be helpful Positive: >=1.1 U/mL A positive result indicates exposure of the patient to H. Pylori, but does not i ndicate that the current symptoms are due to H. Pylori infection or colonization . Neither does it differentiate between active and past infection.
--- OUTSIDE RECORDS SUMMARY | 2018-10-05 17:04 | XMS REPORT | CCD ---
Author Author Auto Generated Organization [facility] Address Unknown Phone Unavailable Care Team Providers Care Technician Preventative Medicine Name Role Phone Jose Slater CP Allergies, Adverse Reactions, Alerts Substance Reaction Status Flexeril Active Problem List Condition Effective Dates Status [D]Nausea and vomiting 06/30/2012 Active Abdominal pain Active Abdominal pain Active Medications Medication Instructions Start Date End Date Status Zofran ODT 4 mg oral 4 mg, 1 tab, PO, BID, PRN, Dissolve 06/10/2013 Ordered tablet, tab under tongue, 10 tab, Nausea disintegrating and Vomiting, Substitution Allowed Dissolve tab under tongue Phenergan 25 mg 1 supp, HI, Q6H, PRN, 9 supp, 06/10/2013 Ordered rectal suppository Nausea & Vomiting, Substitution Allowed ondansetron 4 mg, Route: IVP, Drug form: INJ, 06/10/2013 06/10/2013 Completed ONCE, Dosing Weight 86.364, kg, Priority: STAT, Start date: 06/10/13 16:36:00, Stop date: 06/10/13 16:36:00 morphine Sulfate 4 mg, 1 mL, Route: IVP, Drug form: 06/10/2013 06/10/2013 Completed INJ, ONCE, Dosing Weight 86.364, kg, Priority: STAT, Start date: 06/10/13 14:51:00, Stop date: 06/10/13 14:51:00 promethazine 25 mg, 1 mL, Route: IVP Central, 06/10/2013 06/10/2013 Completed Drug form: INJ, ONCE, Dosing Weight 86.364, kg, Priority: STAT, Start date: 06/10/13 14:51:00, Stop date: 06/10/13 14:51:00 morphine Sulfate 4 mg, Route: IVP, Drug form: INJ, 06/10/2013 06/10/2013 Completed ONCE, Dosing Weight 86.364, kg, Priority: STAT, Start date: 06/10/13 16:36:00, Stop date: 06/10/13 16:36:00 Sodium Chloride 0.9% 1,000 mL, Rate: 1,000 ml/hr, Infuse 06/10/2013 06/10/2013 Completed (Bolus) IV 1,000 mL over: 1 hr, Route: IV, Dosing Weight 86.364 kg, Total Volume: 1,000, Priority: STAT, Start date: 06/10/13 14:50:00, Duration: 1 doses or times, Stop date: 06/10/13 15:49:00, Bolus Dose Bolus Dose Results CHEMISTRY Most recent to oldest [Reference Range]: 1 Sodium Lvl [135-145 mEq/L] 138 mEq/L (06/10/2013 15:30:00) Potassium Lvl [3.5-5.1 mEq/L] 4.0 mEq/L (06/10/2013 15:30:00) Chloride Lvl [95-109 mEq/L] 103 mEq/L (06/10/2013 15:30:00) CO2 [24-32 mEq/L] 26 mEq/L (06/10/2013 15:30:00) AGAP [10.0-20.0 mEq/L] 13.0 mEq/L (06/10/2013 15:30:00) Creatinine Lvl [0.5-1.4 mg/dL] 1.3 mg/dL (06/10/2013 15:30:00) eGFR 72 mL/min/1.73m2 1 *NA* (06/10/2013 15:30:00) BUN [7-22 mg/dL] 20 mg/dL (06/10/2013 15:30:00) B/C Ratio [6-25] 15 (06/10/2013 15:30:00) Glucose Lvl [70-99 mg/dL] 102 mg/dL 2 *HI* (06/10/2013 15:30:00) Total Protein [6.4-8.4 g/dL] 8.3 g/dL (06/10/2013 15:30:00) Albumin Lvl [3.5-5.0 g/dL] 4.2 g/dL (06/10/2013:) Globulin [2.0-4.0 g/dL] 4.1 g/dL *HI* (06/10/2013) A/G Ratio [0.7-1.6] 1.0 (06/10/2013) Calcium Lvl [8.5-10.5 mg/dL] 8.8 mg/dL (06/10/2013:) ALT [0-65 unit/L] 40 unit/L (06/10/2013) AST [0-37 unit/L] 15 unit/L (06/10/2013:) Alk Phos [39-136 unit/L] 76 unit/L (06/10/2013) Bili Total [0.2-1.3 mg/dL] 0.4 mg/dL (06/10/2013) Lipase Lvl [73-393 unit/L] 99 unit/L (06/10/2013) 1Result Comment: The eGFR is calculated using [...] from the National Kid[employer] Education Program ( NKDEP) which additionally recommends that when the eGFR is used in patients with extremes of body mass index for purposes of drug dosing, the eGFR should be mul tiplied by the estimated BMI. 2Interpretive Data: Adult reference range values reflect the clinical guidelines of the [place] [employer]. HEMATOLOGY Most recent to oldest [Reference Range]: 1 WBC [3.7-10.4 K/CMM] 8.1 K/CMM (06/10/2013:) RBC [4.70-6.10 M/CMM] 5.30 M/CMM (06/10/2013 15:30:00) Hgb [14.0-18.0 g/dL] 16.5 g/dL (06/10/2013:30:00) Hct [42.0-54.0 %] 49.2 % (06/10/2013:30:00) MCV [80.0-94.0 fL] 92.8 fL (06/10/2013:30:00) MCH [27.0-31.0 pg] 31.1 pg *HI* (06/10/201330:) MCHC [32.0-36.0 g/dL] 33.5 g/dL (06/10/2013:30:00) RDW [11.5-14.5 %] 14.2 % (06/10/2013:30:) Platelet [133-450 K/CMM] 318 K/CMM (06/10/2013:30:) MPV [7.4-10.4 fL] 9.0 fL (06/10/2013:30:) Segs [45.0-75.0 %] 85.9 % *HI* (06/10/2013:30:) Lymphocytes [20.0-40.0 %] 9.3 % *LOW* (06/10/201330:) Monocytes [2.0-12.0 %] 4.7 % (06/10/2013:30:00) Eosinophils [0.0-4.0 %] 0.1 % (06/10/2013:30:00) Basophils [0.0-1.0 %] 0.0 % (06/10/2013:30:00) Segs-Bands # [1.5-8.1 K/CMM] 7.0 K/CMM (06/10/2013:30:00) Lymphocytes # [1.0-5.5 K/CMM] 0.8 K/CMM *LOW* (06/10/2013:30:00) Monocytes # [0.0-0.8 K/CMM] 0.4 K/CMM (06/10/2013:30:00) Eosinophils # [0.0-0.5 K/CMM] 0.0 K/CMM (06/10/2013 15:30:00) Basophils # [0.0-0.2 K/CMM] 0.0 K/CMM (06/10/2013 15:30:00) Procedures Procedures Date Related Diagnosis Spinal fusion
[2018-10-05] MEDS ORDERED: PANTOPRAZOLE 40 MG 10ML VIAL IV STA (17:16)
[2018-10-05] MEDS ORDERED: SODIUM CHLORIDE 0.9% 1000ML 1,000 ML IV SCH (17:30)
[2018-10-05] MEDS ORDERED: DICYCLOMINE HCL 20 MG/2 ML VIAL IM ONE (17:30)
[2018-10-05 17:50] LABS: BASOPHILS # (AUTO) 0.1 (0.0-0.1); BASOPHILS % 1.3 % (0.0-1.0); EOSINOPHILS # (AUTO) 0.1 (0.0-0.4); EOSINOPHILS % 1.2 % (0.0-6.0); HEMATOCRIT 44.3 % (38.2-49.6); HEMOGLOBIN 15.4 g/dL (14.0-18.0); LYMPHOCYTES # (AUTO) 1.7 (1.0-3.2); LYMPHOCYTES % 24.6 % (18.0-39.1); MEAN CORPUSCULAR HEMOGLOBIN 31.2 pg (28-32); MEAN CORPUSCULAR HGB CONC 34.8 g/dL (31-35); MEAN CORPUSCULAR VOLUME 89.9 fL (81-99); MONOCYTES # (AUTO) 0.4 (0.2-0.8); MONOCYTES % 5.9 % (4.4-11.3); NEUTROPHILS # (AUTO) 4.6 (2.1-6.9); NEUTROPHILS % 66.9 % (38.7-80.0); PLATELET COUNT 307 x10e3/uL (140-360); RED BLOOD COUNT 4.93 x10e6/uL (4.3-5.7); RED CELL DISTRIBUTION WIDTH 12.3 % (11.7-14.4)
[2018-10-05 18:01] LABS: BILIRUBIN,URINE NEGATIVE (NEGATIVE); CLARITY,URINE CLEAR (CLEAR); COLOR,URINE YELLOW (YELLOW); KETONES,URINE NEGATIVE (NEGATIVE); LEUKOCYTE ESTERASE ,URINE NEGATIVE (NEGATIVE); NITRITE,URINE NEGATIVE (NEGATIVE); PROTEIN,URINE DIPSTICK NEGATIVE (NEGATIVE); URINE UROBILINOGEN 0.2 mg/dL (0.2 - 1)
[2018-10-05 18:14] LABS: ANION GAP 12.4 mmol/L (8-16); BLOOD UREA NITROGEN 12 mg/dL (7-26); BUN/CREATININE RATIO 14 (6-25); CARBON DIOXIDE 25 mmol/L (22-29); CHLORIDE 105 mmol/L (98-107); CREATININE, SERUM 0.86 mg/dL (0.72-1.25); EST GLOMERULAR FILTRATION RATE > 60 ML/MIN (60-); GLUCOSE 95 mg/dL (74-118); POTASSIUM 3.4 mmol/L (3.5-5.1); SODIUM 139 mmol/L (136-145)
[2018-10-05 18:18] LABS: BACTERIA,URINE RARE /HPF; EPITHELIAL CELLS,URINE RARE /LPF; MUCUS,URINE FEW (RARE)
[2018-10-05 18:39] LABS: AMPHETAMINES SCREEN,URINE NEGATIVE (NEGATIVE); PHENCYCLIDINE SCREEN,URINE NEGATIVE (NEGATIVE)
[2018-10-05 18:40] LABS: BENZODIAZEPINES SCREEN,URINE POSITIVE (NEGATIVE)
== END 2018-10-05 18:35 | disposition left against medical advice (07) ==
LOC: ER 17:00
DX: R10.31 Right lower quadrant pain (principal); G89.29 Other chronic pain; K50.90 Crohn's disease, unspecified, without complications; Z53.29 Procedure and treatment not carried out because of patient's decision for other reasons
CPT/HCPCS: 36415; 80048; 80307; 81001; 85025; 99283; J7030; J0500

== ENCOUNTER 2021-10-09 11:51 | Emergency (ER) | payer SELFPAY ==
[~2021-10-09] VITALS: Ht 185.4 cm; Wt 95.3 kg
[2021-10-09] MEDS ORDERED: ONDANSETRON HCL INJ 2MG/ML 2ML 2 MG/ML VIAL IV NR (14:11)
[2021-10-09] MEDS ORDERED: METHYLPREDNISOLONE SOD SUCC 125 MG/2ML VIAL IV STA (14:11)
[2021-10-09] MEDS ORDERED: SODIUM CHLORIDE 0.9% 1000ML 1,000 ML IV STA (14:11)
[2021-10-09] MEDS ORDERED: DICYCLOMINE HCL 20 MG/2 ML VIAL IM ONE (14:15)
[2021-10-09 14:25] LABS: BASOPHILS # (AUTO) 0.1 (0.0-0.1); BASOPHILS % 0.9 % (0.0-1.0); HEMATOCRIT 48.9 % (38.2-49.6); HEMOGLOBIN 17.1 g/dL (14.0-18.0); LYMPHOCYTES # (AUTO) 1.2 (1.0-3.2); LYMPHOCYTES % 11.8 % (18.0-39.1); MEAN CORPUSCULAR HEMOGLOBIN 30.7 pg (28-32); MEAN CORPUSCULAR VOLUME 87.8 fL (81-99); MONOCYTES # (AUTO) 0.4 (0.2-0.8); MONOCYTES % 3.9 % (4.4-11.3); NEUTROPHILS # (AUTO) 8.4 (2.1-6.9); PLATELET COUNT 429 x10e3/uL (140-360); RED BLOOD COUNT 5.57 x10e6/uL (4.3-5.7); RED CELL DISTRIBUTION WIDTH 12.4 % (11.7-14.4)
[2021-10-09 14:50] LABS: ALBUMIN 5.7 g/dL (3.5-5.0); ALBUMIN/GLOBULIN RATIO 1.5 (0.8-2.0); ANION GAP 21.4 mmol/L (8-16); CALCIUM 9.7 mg/dL (8.4-10.2); CREATININE, SERUM 1.3 mg/dL (0.72-1.25); MAGNESIUM 2.6 MG/DL (1.3-2.1); POTASSIUM 3.4 mmol/L (3.5-5.1)
[2021-10-09] MEDS ORDERED: DIATRIZOATE MEGL/DIATRIZOA SOD 30 ML BTL PO ONE (14:55)
== END 2021-10-09 16:03 | disposition home or self-care (01) ==
LOC: ER 12:04
DX: R10.32 Left lower quadrant pain (principal); R11.2 Nausea with vomiting, unspecified; I10 Essential (primary) hypertension; Z87.19 Personal history of other diseases of the digestive system
CPT/HCPCS: 36415; 80053; 82150; 83690; 83735; 85025; 99283; C9113; J0500; J2405; J2930; J7030

== ENCOUNTER 2025-06-02 15:51 | Emergency (ER) | payer SELFPAY ==
[~2025-06-02] VITALS: Ht 185.4 cm; Wt 95.3 kg
[2025-06-02 18:09] LABS: BASOPHILS % 1.6 % (0.0-1.0); EOSINOPHILS % 7.6 % (0.0-6.0); LYMPHOCYTES % 32.3 % (18.0-39.1); MONOCYTES % 4.2 % (4.4-11.3); NEUTROPHILS % 54.0 % (38.7-80.0); RED CELL DISTRIBUTION WIDTH 13.6 % (11.7-14.4)
[2025-06-02 18:27] LABS: EST GLOMERULAR FILTRATION RATE 86.0 ML/MIN (>=60)
[2025-06-02] MEDS ORDERED: IOPAMIDOL 370 MG/ML 100 ML INFUS..BTL INJ ONE (18:31)
[2025-06-02] MEDS: DICYCLOMINE HCL 20 MG/2 ML VIAL IM ONE (18:39)
[2025-06-02] MEDS: ONDANSETRON HCL INJ 2MG/ML 2ML 2 MG/ML VIAL IV PRN (19:02)
[2025-06-02] MEDS: SODIUM CHLORIDE 0.9% 1000ML 1,000 ML IV STA (19:02)
[2025-06-02 20:14] VITALS: PULSE 72; RESP 16; TEMP 98.5
[2025-06-02] MEDS: LACTATED RINGER'S 1,000 ML INJ ONE (20:43)
[2025-06-02 21:13] LABS: LEUKOCYTE ESTERASE ,URINE NEGATIVE (NEGATIVE); PROTEIN,URINE DIPSTICK NEGATIVE (NEGATIVE); URINE UROBILINOGEN 0.2 mg/dL (0.2 - 1)
[2025-06-02] MEDS: FENTANYL CITRATE/PF 100MCG/2 ML INJ IV PRN (21:13)
[2025-06-02 21:42] LABS: EPITHELIAL CELLS,URINE FEW /LPF; WBC,URINE (MAN) 0-5 /HPF (0-5)
[2025-06-02 22:24] VITALS: BP 133/93; PULSE 70; RESP 17; TEMP 98.6; O2SAT 100
== END 2025-06-02 22:34 | disposition home or self-care (01) ==
LOC: ER 18:05
DX: R11.2 Nausea with vomiting, unspecified (principal); R10.9 Unspecified abdominal pain; I10 Essential (primary) hypertension; Z87.19 Personal history of other diseases of the digestive system; Z95.810 Presence of automatic (implantable) cardiac defibrillator
CPT/HCPCS: 36415; 80053; 81001; 83690; 85025; 99284; J0500; J2405; J3010; J7030; J7121; Q9967

== ENCOUNTER 2025-08-24 16:11 | Emergency (ER) | payer SELFPAY ==
[~2025-08-24] VITALS: Ht 185.4 cm; Wt 86.2 kg
[2025-08-24 16:15] VITALS: TEMP 98.6
[2025-08-24 17:49] LABS: BASOPHILS % 1.4 % (0.0-1.0); EOSINOPHILS % 2.6 % (0.0-6.0); LYMPHOCYTES % 27.6 % (18.0-39.1); MONOCYTES % 5.6 % (4.4-11.3); NEUTROPHILS % 62.5 % (38.7-80.0); RED CELL DISTRIBUTION WIDTH 13.2 % (11.7-14.4)
[2025-08-24 18:08] VITALS: PULSE 61; RESP 17
[2025-08-24 18:13] LABS: EST GLOMERULAR FILTRATION RATE 83.0 ML/MIN (>=60)
[2025-08-24] MEDS ORDERED: KETOROLAC TROMETHAMINE 30 MG/ML VIAL IV STA (18:13)
[2025-08-24] MEDS: Morphine 4mg INJECTION 4 MG/ML INJ IV STA (19:15)
[2025-08-24] MEDS: ONDANSETRON HCL INJ 2MG/ML 2ML 2 MG/ML VIAL IV STA (19:17)
[2025-08-24 19:42] VITALS: BP 140/101; PULSE 65; RESP 15; TEMP 98.6; O2SAT 100
== END 2025-08-24 19:41 | disposition home or self-care (01) ==
LOC: ER 16:25
DX: M79.602 Pain in left arm (principal); R07.9 Chest pain, unspecified; I10 Essential (primary) hypertension; M54.9 Dorsalgia, unspecified; G89.29 Other chronic pain; Z95.810 Presence of automatic (implantable) cardiac defibrillator; Z87.19 Personal history of other diseases of the digestive system
CPT/HCPCS: 36415; 71045; 80053; 82550; 83690; 84484; 85025; 93005; 99284; J2270; J2405